=== PATIENT | female | born 1940 | race Caucasian/White ===

== ENCOUNTER 2018-08-07 01:57 | Emergency (ER) | payer MEDICARE, BC ==
[~2018-08-07] VITALS: Ht 154.9 cm; Wt 90.7 kg
[~2018-08-07 01:57] MED LIST: Hydrocodone-Ap1 EA23 PO; IBUP600 PO; Keflex500 MG PO; LISHYD1012 PO; NIFE30ER PO; Norco 5-325 Ta1 EACH PO; Percocet 5-3251 EACH PO; SERT100 PO; TRAZ50 PO
[2018-08-07] MEDS ORDERED: Norco 5-325 Ta1 EACH PO (04:19)
== END 2018-08-07 04:20 | disposition home or self-care (01) ==
LOC: ER 01:57
DX: S01.312A Laceration without foreign body of left ear, initial encounter (principal); S09.90XA Unspecified injury of head, initial encounter; I10 Essential (primary) hypertension; Z88.8 Allergy status to other drugs, medicaments and biological substances; Z79.899 Other long term (current) drug therapy; W06.XXXA Fall from bed, initial encounter
CPT/HCPCS: 12053; 70450; 99284-25

== ENCOUNTER 2021-03-20 21:51 | Emergency (ER) | payer MEDICARE, OTHER ==
[~2021-03-20] VITALS: Ht 157.5 cm; Wt 90.7 kg
== END 2021-03-20 22:17 | disposition home or self-care (01) ==
LOC: ER 21:51
DX: S90.32XA Contusion of left foot, initial encounter (principal); I10 Essential (primary) hypertension; Z95.0 Presence of cardiac pacemaker; Z88.8 Allergy status to other drugs, medicaments and biological substances; W01.0XXA Fall on same level from slipping, tripping and stumbling without subsequent striking against object, initial encounter
CPT/HCPCS: 99282

== ENCOUNTER 2022-04-26 21:42 | Observation (INO) | payer MEDICARE ==
[~2022-04-26] VITALS: Ht 154.9 cm; Wt 88.5 kg
[~2022-04-26 21:42] MED LIST changes: -LISHYD1012 PO; +Lisinopril-Hct1 EAC4 PO; -SERT100 PO; +SERT50 PO
[2022-04-26 22:43] LABS: Source, Urine Clean Catch
[2022-04-26 22:51] LABS: BASOPHILS ABSOLUTE AUTO 0.02 K/mm3 (0.00-0.23); BASOPHILS PERCENT AUTO 0 % (0-2); EOSINOPHILS ABSOLUTE AUTO 0.01 K/mm3 (0.00-0.68); EOSINOPHILS PERCENT AUTO 0 % (0-6); Hematocrit 39.3 % (33.0-51.0); Hemoglobin 12.4 g/dL (11.5-16.0); IMMATURE GRAN ABSOLUTE AUTO 0.03 K/mm3 (0.00-0.10); IMMATURE GRAN PERCENT AUTO 0 % (0-1); LYMPHOCYTES ABSOLUTE AUTO 0.88 K/mm3 (0.84-5.20); LYMPHOCYTES PERCENT AUTO 10 % (21-46); MONOCYTES ABSOLUTE AUTO 0.35 K/mm3 (0.16-1.47); MONOCYTES PERCENT AUTO 4 % (4-13); Mean Corpuscular HGB 26.8 pg (26.0-34.0); Mean Corpuscular HGB Conc 31.6 g/dL (31.5-36.5); Mean Corpuscular Volume 85 fL (80-100); Mean Platelet Volume 10.3 fL (9.1-12.4); NEUTROPHILS ABSOLUTE AUTO 7.86 K/mm3 (1.96-9.15); NEUTROPHILS PERCENT AUTO 86 % (41-73); Platelet Count 254 K/mm3 (150-400); RDW Standard Deviation 52.5 fL (35.1-46.3); Red Blood Cell Count 4.62 M/mm3 (3.80-5.20); White Blood Cell Count 9.15 K/mm3 (4.00-11.30)
[2022-04-26 22:51] LABS: Appearance, Urine Clear (Clear); Bilirubin, Urine Neg (Neg); Blood, Urine 2+ (Neg); Glucose Qualitative, Urine Neg (Neg); Ketones, Urine Neg (Neg); Leukocyte Esterase, Urine Neg (Neg); Nitrite, Urine Neg (Neg); Protein, Urine Neg (Neg); Specific Gravity, Urine 1.005 (1.003-1.022); Urobilinogen, Urine NORM (Normal)
[2022-04-26 22:58] LABS: Color, Urine Pale Yellow (P-Yellow)
[2022-04-26 23:05] LABS: Bacteria Few /hpf; Squamous Epithelial Cells Few /hpf (Few); White Blood Cells, Urine Rare /hpf (0-5)
[2022-04-26 23:09] LABS: Albumin, Blood 3.9 g/dL (3.4-5.0); Albumin/Globulin Ratio 0.9 (0.8-1.8); Bilirubin, Total 0.6 mg/dL (0.1-1.0); Bun/Creatinine Ratio 13.3 (12.0-20.0); Calcium, Blood 9.9 mg/dL (8.5-10.1); Creatinine, Blood 0.83 mg/dL (0.40-1.00); Globulin, Blood 4.3 g/dL (2.2-4.0); Potassium, Blood 3.6 mmol/L (3.5-5.5); Total Protein, Blood 8.2 g/dL (6.4-8.2)
[2022-04-27] MEDS ORDERED: BACLOFEN5 M5 PO (01:34)
[2022-04-27 02:59] LABS: U Amphetamine Screen Not Detected; U Barbituate Screen Not Detected; U Benzodiazapine Screen Not Detected; U Buprenorphine Screen Not Detected; U Cannabinoids Screen Not Detected; U Cocaine Screen Not Detected; U Methadone Screen Not Detected; U Methamphetamine Screen Not Detected; U Opiates Screen DETECTED; U Oxycodone Screen Not Detected; U Phencyclidine Screen Not Detected; U Propoxyphene Screen Not Detected
--- NOTE | 2022-04-27 03:21 | NUR ---
ADMIT NOTE HANDOFF RECEIVED FROM AGRICULTURE SPECIALIST LUNA. PT ARRIVED TO FLOOR VIA GURNEY. PT ORIENTED TO UNIT. PERSONAL POSSESSIONS WITH PT. PERSONAL CLOTHES REMOVED FROM PT AND PUT INTO A BELONGINGS BAG. IV FLUIDS STARTED ORDERED. TELEMETRY MONITORING HAS NOW BEGAN. UNCOLLECTED SPECIMENS ARE NOW COLLECTED BY THIS NURSE. THE PT HAS NOW RECEIVED THE ORDERED HEAD CT SCAN. WE ARE NOW AWAITING RESULTS FROM SPECIMENS AND CT SCAN.
[2022-04-27 03:41] LABS: Influenza A, PCR NEGATIVE (NEGATIVE); Influenza B, PCR NEGATIVE (NEGATIVE); Resp Syncytial Virus, PCR NEGATIVE (NEGATIVE); SARS-Cov-2 (COVID-19) PCR, MMC NEGATIVE (NEGATIVE)
[2022-04-27] MEDS ORDERED: HYDROCODONE-AC1 EAC7 PO (04:55)
--- NOTE | 2022-04-27 05:48 | NUR ---
SHIFT SUMMARY ADMITTED FROM ER THIS SHIFT FOR AMS, WEAKNESS, AND DYSURIA. ALSO TO R/O CVA. DNR CODE. IV FLUIDS INFUSING ORDERED. TELE IN PLACE: PACED @ 63. HOME PRN PAIN RX ORDERED FOR LEG PAIN. SPECIMENS GATHERED AND SENT FOR TESTING. PT SENT FOR HEAD CT SCAN. PRN HYDRALAZINE GIVEN FOR HTN. SHE IS A&O X4 FOR ME. SHE IS CONTINENT FOR ME, BUT WEAK. 1 ASSIST W/FWW TO BSC. SHE USES A FWW AT HOME AND LIVES W/HER DAUGHTER WHO CARES FOR HER. RA. BLOOD CULTURES SENT.
[2022-04-27 07:16] LABS: BASOPHILS ABSOLUTE AUTO 0.04 K/mm3 (0.00-0.23); BASOPHILS PERCENT AUTO 0 % (0-2); EOSINOPHILS ABSOLUTE AUTO 0.14 K/mm3 (0.00-0.68); EOSINOPHILS PERCENT AUTO 1 % (0-6); Hematocrit 40.3 % (33.0-51.0); Hemoglobin 12.5 g/dL (11.5-16.0); IMMATURE GRAN ABSOLUTE AUTO 0.08 K/mm3 (0.00-0.10); IMMATURE GRAN PERCENT AUTO 1 % (0-1); LYMPHOCYTES ABSOLUTE AUTO 1.78 K/mm3 (0.84-5.20); LYMPHOCYTES PERCENT AUTO 14 % (21-46); MONOCYTES ABSOLUTE AUTO 1.17 K/mm3 (0.16-1.47); MONOCYTES PERCENT AUTO 9 % (4-13); Mean Corpuscular HGB 26.8 pg (26.0-34.0); Mean Corpuscular Volume 86 fL (80-100); Mean Platelet Volume 10.1 fL (9.1-12.4); NEUTROPHILS ABSOLUTE AUTO 9.83 K/mm3 (1.96-9.15); NEUTROPHILS PERCENT AUTO 75 % (41-73); Platelet Count 261 K/mm3 (150-400); RDW Coefficient Variation 17.2 % (11.7-14.2); Red Blood Cell Count 4.67 M/mm3 (3.80-5.20); White Blood Cell Count 13.04 K/mm3 (4.00-11.30)
[2022-04-27 07:47] LABS: Albumin, Blood 3.7 g/dL (3.4-5.0); Albumin/Globulin Ratio 0.9 (0.8-1.8); Bilirubin, Total 0.5 mg/dL (0.1-1.0); Bun/Creatinine Ratio 12.6 (12.0-20.0); Calcium, Blood 9.6 mg/dL (8.5-10.1); Creatinine, Blood 0.95 mg/dL (0.40-1.00); Globulin, Blood 4.2 g/dL (2.2-4.0); Total Protein, Blood 7.9 g/dL (6.4-8.2)
[2022-04-27 07:49] LABS: CPK Creatine Kinase 128 U/L (26-193)
[2022-04-27] MEDS ORDERED: DOCU100 PO (08:43)
[2022-04-27] MEDS ORDERED: HYDCHL25 PO (12:53)
[2022-04-27] MEDS ORDERED: SENN187 PO (12:54)
[2022-04-27] MEDS ORDERED: LISI20 PO (12:54)
--- NOTE | 2022-04-27 18:34 | NUR ---
DISCHARGE SUMMARY: PATIENT READY FOR DISCHARGE. PATIENT REPORTS ABDOMINAL PAIN THAT HAS BEEN PRESENT FOR "AWHILE" AND CHRONIC LEG PAIN FROM ARTHRITIS. PATIENT CONTINUED TO HAVE URGENCY AND FREQUENCY FOR VOIDING IN THE MORNING. URINE CLEAR LIGHT YELLOW. PATIENT DENIED PAIN WITH VOIDING. PATIENT CONTINUES TO HAVE ELEVATED BP'S, BUT DID NOT QUALIFY FOR PRN MEDICATIONS WHEN TAKEN BY RN OR FASHION MARKETER. PATIENT'S DAUGHTER REPORTS THEY WILL TAKE BP'S AT HOME AND BE SURE TO FOLLOW UP WITH THE PCP. PATIENT MEDICATED IN THE MORNING WITH NEW DOSAGES OF HER MEDICATION. PATIENT MEDICATIONS FAXED TO [facility] PER PATIENT REQUEST. DISCHARGE INSTRUCTIONS AND EDUCATION PROVIDED TO PATIENT AND PATIENT'S DAUGHTER. ALL QUESTIONS AND CONCERNS ADDRESSED. PATIENT DISCHARGE IN WHEELCHAIR WITH RN. PATIENT STABLE AT TIME OF DISCHARGE.
== END 2022-04-27 16:25 | disposition home or self-care (01) ==
LOC: ER 21:42 → MEDS 21:43 → ER 04-27 00:20 → MEDS 04-27 00:20
PROVIDERS: Student in an Organized Health Care Education/Training Program; ADMIT Internal Medicine
DX: G92.8 Other toxic encephalopathy (principal); E87.2 Acidosis; G89.29 Other chronic pain; R10.9 Unspecified abdominal pain; R25.2 Cramp and spasm; K44.9 Diaphragmatic hernia without obstruction or gangrene; I10 Essential (primary) hypertension; Z88.8 Allergy status to other drugs, medicaments and biological substances; Z79.899 Other long term (current) drug therapy; Z20.822 Contact with and (suspected) exposure to COVID-19
CPT/HCPCS: 0241U; 36415; 70450; 71045; 80053; 81001; 82550; 83605; 83690; 83880; 84484; 85025; 93005; 93010; 93306; 96374; 97116; 97162; 99285-25; A9270; G0378; J0360; J0696; J1650; J7030